=== PATIENT | female | born 1995 | race Caucasian/White ===

== ENCOUNTER 2016-05-13 15:28 | Emergency (ER) | payer OTHER ==
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
--- NOTE | 2016-05-13 18:09 | ED ORDER SUMMARY ---
..... Patient: TRACY COVINGTON OrderSheet [facility] VisitID: [id number] [address] [place] [address] 20y, F Registration Date/Time: 05/13/2016 ORDER SHEET Weight: 88.4 kg (stated) Allergies: No Known Drug Allergy GENERAL ORDERS: MEDICATION ORDERS: Motrin PO 800 mg (NOW) (17:12 05/13/2016 EKoroleva P.A.-C) (17:20 LSullivan R.N.) Tylenol PO 325 mg (NOW) (17:12 05/13/2016 EKoroleva P.A.-C) (17:20 LSullivan R.N.) IV FLUIDS: ORDER SHEET NOTES: [Electronically signed by Stephanie MontejoAZabrina-Celestine (18:32 05/13/2016)] [Electronically signed by Montse Zamudio R.N. (22:25 05/13/2016)] [Electronically locked/signed by Montse Zamudio R.N. (22:25 05/13/2016)]
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
--- NOTE | 2016-05-13 18:09 | ED ORDER SUMMARY ---
..... Patient: TRACY COVINGTON OrderSheet [facility] VisitID: [id number] [address] [place] [address] 20y, F Registration Date/Time: 05/13/2016 ORDER SHEET Weight: 88.4 kg (stated) Allergies: No Known Drug Allergy GENERAL ORDERS: MEDICATION ORDERS: Motrin PO 800 mg (NOW) (17:12 05/13/2016 EKoroleva P.A.-C) (17:20 LSullivan R.N.) Tylenol PO 325 mg (NOW) (17:12 05/13/2016 EKoroleva P.A.-C) (17:20 LSullivan R.N.) IV FLUIDS: ORDER SHEET NOTES: [Electronically signed by Stephanie MontejoAZabrina-Celestine (18:32 05/13/2016)] [Electronically signed by Montse Zamudio R.N. (22:25 05/13/2016)] [Electronically locked/signed by Montse Zamudio R.N. (22:25 05/13/2016)]
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
--- NOTE | 2016-05-13 22:25 | ED DISCHARGE INSTRUCTIONS ---
Patient: TRACY COVINGTON General Instructions [facility] VisitID: [id number] [place] [address] 20y, F Registration Date/Time: 05/13/2016 Febrile illness. Influenza type A. INSTRUCTIONS Drink plenty of fluids. Prescription Medications: Tamiflu 75 mg: take 1 capsule orally every 12 hours for 5 days. Dispense ten (10). No refills. Substitution is permissible. Ibuprofen 800 mg tablets: take 1 tablet orally every 8 hours for 5 days, as needed for pain or fever. Dispense fifteen (15). No refill. Follow-up: Follow up with your doctor Tuesday. ADDITIONAL INFORMATION Influenza (Adult) Influenza, also called the flu, is a viral illness that affects the air passages of the lungs. It differs from the common cold. It is highly contagious. It may be spread through the air by coughing and sneezing or by direct contact (touching the sick person and then touching your own eyes, nose or mouth). Illness starts 1-3 days after exposure and lasts for 1-2 weeks. Antibiotics are usually not needed unless a complication appears (ear or sinus infection or pneumonia). Symptoms may be mild or severe and can include extreme tiredness (wanting to stay in bed all day), chills, fevers, muscle aching, soreness with eye movement, headache, and a dry, hacking cough. Home Care: Avoid exposure to cigarette smoke (yours or others). Tylenol or ibuprofen (Advil) will help fever, muscle aching, and headache. To avoid risk of liver injury, aspirin should not be used in children and teenagers under 18 with this illness. Nausea and loss of appetite are common. A light diet is recommended. Avoid dehydration by drinking 6-8 glasses of fluids per day (water, sport drinks like Gatorade, soft drinks without caffeine, juices, tea, soup, etc.). Extra fluids will also help loosen secretions in the nose and lungs. [id number] cold medicines will not shorten the duration of the illness but may be helpful for the following symptoms: cough (Robitussin DM); sore throat (Chloraseptic lozenges or spray); nasal and sinus congestion (Actifed or Sudafed). [NOTE: Do not use decongestants if you have high blood pressure.] Stay home until your fever has been gone for at least 24 hours (without the use of fever-reducing medications such as ibuprofen). Follow Up with your doctor or as directed by our staff if you are not improving over the next week. Note: If you are age 65 or older, or if you have chronic asthma or COPD, we recommend a pneumococcal vaccinationevery five years. All adults shouldreceive a yearly influenza vaccination every . Ask your doctor about this. Get Prompt Medical Attention if any of the following occur: Cough with lots of colored sputum (mucus) or blood in your sputum Chest pain, shortness of breath, wheezing, or difficulty breathing Severe headache, face, neck or ear pain New rash Fever of 100.4F (38C) oral or higher, not better with fever medication Confusion, behavior change or seizure Severe weakness or dizziness You have been given the following additional information: Influenza (Adult) (Electronically signed by Stephanie Montejo P.A.-C 05/13/2016 18:32)
--- NOTE | 2016-05-13 22:25 | ED MAR SUMMARY ---
..... Medication Administration Record [facility] [address] [place] [address] Patient: TRACY COVINGTON Visit ID: [id number] 20y, F Weight: 88.4 kg Height/Length: 71 in BMI: 27.2 ALLERGIES: No Known Drug Allergy Given 17:05/13/2016 Vera Mann RZabrinaNZabrina Medication Administered: MOTRIN [PO], Dose: 800 mg PO. Medication Ordered: Motrin PO 800 mg (NOW). Given 17:05/13/2016 Vera Mann, R.N. Medication Administered: TYLENOL [PO] (ACETAMINOPHEN), Dose: 325 mg PO. Medication Ordered: Tylenol PO 325 mg (NOW).
--- NOTE | 2016-05-13 22:25 | ED MED RECONCILIATION SUMMARY ---
Patient: TRACY COVINGTON Medication Reconciliation Report [facility] VisitID: [id number] [address] [place] [address] 20y, F Registration Date/Time: 05/13/2016 Weight: 88.4 kg Height/Length: 71 in. BMI: 27.2 ALLERGIES: No Known Drug Allergy The patient's Home Medications are listed below: THE FOLLOWING MEDICATIONS NEED TO BE RECONCILED: [place] Oral (10-325 mg), daily, did not take today The source(s) of the original Home Medication information: patient The following Medications were given to the patient in the Emergency Department: Motrin [PO] PO 800 mg, administered: 05/13/2016 5:20:00 PM Tylenol [PO] PO 325 mg, administered: 05/13/2016 5:20:00 PM The following Medications were prescribed to the patient: Tamiflu 75 mg: take 1 capsule orally every 12 hours for 5 days. Dispense ten (10). No refills. Substitution is permissible. -- Stephanie Montejo, P.A.-Celestine Ibuprofen 800 mg tablets: take 1 tablet orally every 8 hours for 5 days, as needed for pain or fever. Dispense fifteen (15). No refill. -- Stephanie Montejo, P.A.-C
--- NOTE | 2016-05-13 22:25 | ED MAR SUMMARY ---
..... Medication Administration Record [facility] [address] [place] [address] Patient: TRACY COVINGTON Visit ID: [id number] 20y, F Weight: 88.4 kg Height/Length: 71 in BMI: 27.2 ALLERGIES: No Known Drug Allergy Given 17:05/13/2016 Vera Mann RZabrinaNZabrina Medication Administered: MOTRIN [PO], Dose: 800 mg PO. Medication Ordered: Motrin PO 800 mg (NOW). Given 17:05/13/2016 Vera Mann, R.N. Medication Administered: TYLENOL [PO] (ACETAMINOPHEN), Dose: 325 mg PO. Medication Ordered: Tylenol PO 325 mg (NOW).
--- NOTE | 2016-05-13 22:25 | ED MED RECONCILIATION SUMMARY ---
Patient: TRACY COVINGTON Medication Reconciliation Report [facility] VisitID: [id number] [address] [place] [address] 20y, F Registration Date/Time: 05/13/2016 Weight: 88.4 kg Height/Length: 71 in. BMI: 27.2 ALLERGIES: No Known Drug Allergy The patient's Home Medications are listed below: THE FOLLOWING MEDICATIONS NEED TO BE RECONCILED: [place] Oral (10-325 mg), daily, did not take today The source(s) of the original Home Medication information: patient The following Medications were given to the patient in the Emergency Department: Motrin [PO] PO 800 mg, administered: 05/13/2016 5:20:00 PM Tylenol [PO] PO 325 mg, administered: 05/13/2016 5:20:00 PM The following Medications were prescribed to the patient: Tamiflu 75 mg: take 1 capsule orally every 12 hours for 5 days. Dispense ten (10). No refills. Substitution is permissible. -- Stephanie Montejo, P.A.-Celestine Ibuprofen 800 mg tablets: take 1 tablet orally every 8 hours for 5 days, as needed for pain or fever. Dispense fifteen (15). No refill. -- Stephanie Montejo, P.A.-C
== END 2016-05-13 18:43 | disposition home or self-care (01) ==
LOC: ED SRH 15:28
DX: J11.1 Influenza due to unidentified influenza virus with other respiratory manifestations (principal); F17.200 Nicotine dependence, unspecified, uncomplicated

== ENCOUNTER 2016-07-20 16:54 | Emergency (ER) | payer OTHER ==
--- NOTE | 2016-07-20 17:37 | DIAGNOSTIC IMAGING REPORT ---
PROCEDURE: XR CHEST 2 VIEW INDICATION: CHEST PAIN TECHNIQUE: PA and lateral views. COMPARISON: Chest 07/19/2011 FINDINGS: Lungs are clear. Heart and mediastinum are normal. Thorax is normal. IMPRESSION: 1. Negative chest.
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
--- NOTE | 2016-07-20 18:27 | ED ORDER SUMMARY ---
..... Patient: TRACY COVINGTON OrderSheet [facility] VisitID: [id number] [place] [address] 20y, F Registration Date/Time: 07/20/2016 ORDER SHEET Weight: 85.2 kg (stated) Allergies: No Known Drug Allergy GENERAL ORDERS: Chest 2V Urgent (17:20 07/20/2016 EKoroleva P.A.-C) (Ack 17:23 LNations ER Tech1) (17:37 JBoardley R.N.) Supervisor Dyer (Continuous) (17:20 07/20/2016 EKoroleva P.A.-C) (Ack 17:23 LNations ER Tech1) (17:37 JBoardley R.N.) UA-Culture if indicated Urgent (17:21 07/20/2016 EKoroleva P.A.-C) (Ack 17:23 LNations ER Tech1) (17:37 JBoardley R.N.) Urine Urgent (17:21 07/20/2016 EKoroleva P.A.-C) (Ack 17:23 LNations ER Tech1) (17:37 JBoardley R.N.) EKG - ER Stat (17:21 07/20/2016 EKoroleva P.A.-C) (Ack 17:23 LNations ER Tech1) (17:50 JBoardley R.N.) MEDICATION ORDERS: Valium PO 5 mg (HIGH ALERT MEDICATION, NOW) (18:11 07/20/2016 EKoroleva P.A.-C) (Ack 18:11 JBoardley R.N.) (18:14 JBoardley R.N.) Percocet PO 5/325 mg (HIGH ALERT MEDICATION, NOW) (18:11 07/20/2016 EKoroleva P.A.-C) (Ack 18:12 JBoardley R.N.) (18:14 JBoardley R.N.) IV FLUIDS: ORDER SHEET NOTES: [Electronically signed by Dominic Castellon R.N. (18:39 07/20/2016)] [Electronically signed by Stephanie Montejo P.A.-C (19:08 07/20/2016)] [Electronically locked/signed by Dominic Castellon R.N. (18:39 07/20/2016)]
--- NOTE | 2016-07-20 18:27 | ED ORDER SUMMARY ---
..... Patient: TRACY COVINGTON OrderSheet [facility] VisitID: [id number] [place] [address] 20y, F Registration Date/Time: 07/20/2016 ORDER SHEET Weight: 85.2 kg (stated) Allergies: No Known Drug Allergy GENERAL ORDERS: Chest 2V Urgent (17:20 07/20/2016 EKoroleva P.A.-C) (Ack 17:23 LNations ER Tech1) (17:37 JBoardley R.N.) Analysis Analyst (Continuous) (17:20 07/20/2016 EKoroleva P.A.-C) (Ack 17:23 LNations ER Tech1) (17:37 JBoardley R.N.) UA-Culture if indicated Urgent (17:21 07/20/2016 EKoroleva P.A.-C) (Ack 17:23 LNations ER Tech1) (17:37 JBoardley R.N.) Urine Urgent (17:21 07/20/2016 EKoroleva P.A.-C) (Ack 17:23 LNations ER Tech1) (17:37 JBoardley R.N.) EKG - ER Stat (17:21 07/20/2016 EKoroleva P.A.-C) (Ack 17:23 LNations ER Tech1) (17:50 JBoardley R.N.) MEDICATION ORDERS: Valium PO 5 mg (HIGH ALERT MEDICATION, NOW) (18:11 07/20/2016 EKoroleva P.A.-C) (Ack 18:11 JBoardley R.N.) (18:14 JBoardley R.N.) Percocet PO 5/325 mg (HIGH ALERT MEDICATION, NOW) (18:11 07/20/2016 EKoroleva P.A.-C) (Ack 18:12 JBoardley R.N.) (18:14 JBoardley R.N.) IV FLUIDS: ORDER SHEET NOTES: [Electronically signed by Dominic Castellon R.N. (18:39 07/20/2016)] [Electronically signed by Stephanie Montejo P.A.-C (19:08 07/20/2016)] [Electronically locked/signed by Dominic Castellon R.N. (18:39 07/20/2016)]
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
--- NOTE | 2016-07-20 19:08 | ED MED RECONCILIATION SUMMARY ---
Patient: TRACY COVINGTON Medication Reconciliation Report [facility] VisitID: [id number] [address] [place] [address] 20y, F Registration Date/Time: 07/20/2016 Weight: 85.2 kg Height/Length: 71 in. BMI: 26.2 ALLERGIES: No Known Drug Allergy The patient's Home Medications are listed below: THE FOLLOWING MEDICATIONS NEED TO BE RECONCILED: Ibuprofen Oral Og[place]by Oral (10-325 mg), daily The source(s) of the original Home Medication information: Not obtained. The following Medications were given to the patient in the Emergency Department: Valium [PO] PO 5 mg, administered: 07/20/2016 6:14:00 PM Percocet [PO] PO 1 tab, administered: 07/20/2016 6:14:00 PM The following Medications were prescribed to the patient: Valium 5 mg: take 1 orally every 12 hours as needed for muscle spasm. No refill. Substitution is permissible.(#4) -- Stephanie Montejo P.A.-C
--- NOTE | 2016-07-20 19:08 | ED DISCHARGE INSTRUCTIONS ---
Patient: TRACY COVINGTON General Instructions [facility] VisitID: [id number] [place] [address] 20y, F Registration Date/Time: 07/20/2016 Acute thoracic back pain associated with muscle strain. INSTRUCTIONS Apply ice. (alternate ice/ heat). Prescription Medications: Valium 5 mg: take 1 orally every 12 hours as needed for muscle spasm. No refill. Substitution is permissible. (#4) Follow-up: Follow up with your doctor in two days. ADDITIONAL INFORMATION Back Pain [Acute Or Chronic] Back pain is usually caused by an injury to the muscles or ligaments of the spine. Sometimes the disks that separate each bone in the spine may bulge and cause pain by pressing on a nearby nerve. Back pain may also appear after a sudden twisting/bending force (such as in a car accident), after a simple awkward movement, or lifting something heavy with poor body positioning. In either case, muscle spasm is often present and adds to the pain. Acute back pain usually gets better in one to two weeks. Back pain related to disk disease, arthritis in the spinal joints or spinal stenosis (narrowing of the spinal canal) can become chronic and last for months or years. Unless you had a physical injury (for example, a car accident or fall) X-rays are usually not ordered for the initial evaluation of back pain. If pain continues and does not respond to medical treatment, x-rays and other tests may be performed at a later time. Home Care: You may need to stay in bed the first few days. But, as soon as possible, begin sitting or walking to avoid problems with prolonged bed rest (muscle weakness, worsening back stiffness and pain, blood clots in the legs). When in bed, try to find a position of comfort. A firm mattress is best. Try lying flat on your back with pillows under your knees. You can also try lying on your side with your knees bent up towards your chest and a pillow between your knees. Avoid prolonged sitting. This puts more stress on the lower back than standing or walking. During the first two days after injury, apply an ICE PACK to the painful area for 20 minutes every 2-4 hours. This will reduce swelling and pain. HEAT (hot shower, hot bath or heating pad) works well for muscle spasm. You can start with ice, then switch to heat after two days. Some patients feel best alternating ice and heat treatments. Use the one method that feels the best to you. You may use acetaminophen (Tylenol) or ibuprofen (Motrin, Advil) to control pain, unless another pain medicine was prescribed. [NOTE: If you have chronic liver or kidney disease or ever had a stomach ulcer or GI bleeding, talk with your doctor before using these medicines.] Be aware of safe lifting methods and do not lift anything over 15 pounds until all the pain is gone. Follow Up with your doctor or this facility if your symptoms do not start to improve after one week. Physical therapy may be needed. [NOTE: If X-rays were taken, they will be reviewed by a radiologist. You will be notified of any new findings that may affect your care.] Get Prompt Medical Attention if any of the following occur: Pain becomes worse or spreads to your legs Weakness or numbness in one or both legs Loss of bowel or bladder control Numbness in the groin or genital area Back Spasm [No Trauma] Spasm of the back muscles can occur after a sudden forceful twisting or bending force (such as in a car accident), after a simple awkward movement, or after lifting something heavy with poor body positioning. In either case, muscle spasm is often present and adds to the pain.Sleeping in an awkward position or on a poor quality mattress can also cause this. Some persons respond to emotional stress by tensing the muscles of their back. The treatment described below will usually help the pain to go away in 5-7 days. Pain that continues may require further evaluation or other types of treatment such as physical therapy. Unless you had a physical injury (for example, a car accident or fall), x-rays are usually not ordered for the initial evaluation of back pain. If pain continues and does not respond to medical treatment, x-rays and other tests may be performed at a later time. Home Care: You may need to stay in bed the first few days. But, as soon as possible, begin sitting or walking to avoid problems with prolonged bed rest (muscle weakness, worsening back stiffness and pain, blood clots in the legs). When in bed, try to find a position of comfort. A firm mattress is best. Try lying flat on your back with pillows under your knees. You can also try lying on your side with your knees bent up toward your chest and a pillow between your knees. Avoid prolonged sitting. This puts more stress on the lower back than standing or walking. Some persons find relief with heat (hot shower, hot bath, or heating pad) and massage, while others prefer cold packs (crushed or cubed ice in a plastic bag, wrapped in a towel). Try both and use the method that feels best for 20 minutes several times a day. You may use acetaminophen (Tylenol) or ibuprofen (Motrin, Advil) to control pain, unless another pain medicine was prescribed. [NOTE: If you have chronic liver or kidney disease or ever had a stomach ulcer or GI bleeding, talk with your doctor before using these medicines.] Gentle stretching will help your back heal faster. Perform this simple routine 2-3 times a day until your back is feeling better. LOW BACK STRETCH Lie on your back with your knees bent and both feet on the ground. Slowly raise your left knee to your chest as you flatten your lower back against the floor. Hold for 5 seconds. Relax and repeat the exercise with your right knee. Do 10 of these exercises for each leg. Repeat, hugging both knees to your chest at the same time. Be aware of safe lifting methods and do not lift anything over 15 pounds until all the pain is gone. Follow Up with your doctor or this facility if your symptoms do not start to improve after one week. Physical therapy or further tests may be needed. [NOTE: If x-rays were taken, they will be reviewed by a radiologist. You will be notified of any new findings that may affect your care.] Return Promptly or contact your doctor if any of the following occurs: Pain becomes worse or spreads to your legs Weakness or numbness in one or both legs Loss of bowel or bladder control Numbness in the groin or genital area Unexplained fever over 100.4F (38.0C) Burning or pain when passing urine You have been given the following additional information: Back Pain (Acute Or Chronic) Back Spasm, No Trauma (Electronically signed by Stephanie Montejo P.A.-C 07/20/2016 19:08)
--- NOTE | 2016-07-20 19:08 | ED MAR SUMMARY ---
..... Medication Administration Record [facility] [address] [place] [address] Patient: TRACY COVINGTON Visit ID: [id number] 20y, F Weight: 85.2 kg Height/Length: 71 in BMI: 26.2 ALLERGIES: No Known Drug Allergy Given 18:07/20/2016 Dominic Castellon RZabrinaNZabrina Medication Administered: VALIUM [PO] (DIAZEPAM), Dose: 5 mg PO. Medication Ordered: Valium PO 5 mg (HIGH ALERT MEDICATION, NOW). Given 18:07/20/2016 Dominic Castellon RZabrinaN. Medication Administered: PERCOCET [PO] (OXYCODONE-ACETAMINOPHEN), Dose: 1 tab 5/325 mg Tablets PO. Medication Ordered: Percocet PO 5/325 mg (HIGH ALERT MEDICATION, NOW).
--- NOTE | 2016-07-20 19:08 | ED MED RECONCILIATION SUMMARY ---
Patient: TRACY COVINGTON Medication Reconciliation Report [facility] VisitID: [id number] [address] [place] [address] 20y, F Registration Date/Time: 07/20/2016 Weight: 85.2 kg Height/Length: 71 in. BMI: 26.2 ALLERGIES: No Known Drug Allergy The patient's Home Medications are listed below: THE FOLLOWING MEDICATIONS NEED TO BE RECONCILED: Ibuprofen Oral Rochelle Oral (10-325 mg), daily The source(s) of the original Home Medication information: Not obtained. The following Medications were given to the patient in the Emergency Department: Valium [PO] PO 5 mg, administered: 07/20/2016 6:14:00 PM Percocet [PO] PO 1 tab, administered: 07/20/2016 6:14:00 PM The following Medications were prescribed to the patient: Valium 5 mg: take 1 orally every 12 hours as needed for muscle spasm. No refill. Substitution is permissible.(#4) -- Stephanie Montejo P.A.-C
--- NOTE | 2016-07-20 19:08 | ED MAR SUMMARY ---
..... Medication Administration Record [facility] [address] [place] [address] Patient: TRACY COVINGTON Visit ID: [id number] 20y, F Weight: 85.2 kg Height/Length: 71 in BMI: 26.2 ALLERGIES: No Known Drug Allergy Given 18:07/20/2016 Dominic Castellon RZabrinaNZabrina Medication Administered: VALIUM [PO] (DIAZEPAM), Dose: 5 mg PO. Medication Ordered: Valium PO 5 mg (HIGH ALERT MEDICATION, NOW). Given 18:07/20/2016 Dominic Castellon RZabrinaN. Medication Administered: PERCOCET [PO] (OXYCODONE-ACETAMINOPHEN), Dose: 1 tab 5/325 mg Tablets PO. Medication Ordered: Percocet PO 5/325 mg (HIGH ALERT MEDICATION, NOW).
== END 2016-07-20 18:38 | disposition home or self-care (01) ==
LOC: ED SRH 16:54
DX: S29.012A Strain of muscle and tendon of back wall of thorax, initial encounter (principal); X58.XXXA Exposure to other specified factors, initial encounter; Y93.89 Activity, other specified; Z79.1 Long term (current) use of non-steroidal anti-inflammatories (NSAID)
CPT/HCPCS: 90004; 93070

== ENCOUNTER 2016-11-15 13:24 | Emergency (ER) | payer OTHER ==
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
--- NOTE | 2016-11-15 14:57 | ED ORDER SUMMARY ---
..... Patient: TRACY COVINGTON OrderSheet [facility] VisitID: [id number] [place] [address] 21y, F Registration Date/Time: 11/15/2016 ORDER SHEET Weight: 84.8 kg Allergies: No Known Drug Allergy GENERAL ORDERS: UA-Culture if indicated Urgent (13:39 11/15/2016 JBoardley R.N. per protocol) (Ack 13:43 Glenn) (13:45 JBoardley R.N.) Urine Urgent (13:39 11/15/2016 JBoardley R.N. per protocol) (Ack 13:43 Glenn) (13:45 JBoardley R.N.) MEDICATION ORDERS: Valium IM 5 mg (HIGH ALERT MEDICATION, NOW) (13:51 11/15/2016 EKadalbertolemariluz P.A.-C) (Ack 13:56 JBoardley R.N.) (14:00 JBoardley R.N.) Percocet PO 5/325 mg (HIGH ALERT MEDICATION, NOW) (14:52 11/15/2016 EKoroleva P.A.-C) (Ack 14:53 JBoardley R.N.) (14:54 JBoardley R.N.) IV FLUIDS: ORDER SHEET NOTES: [Electronically signed by Dominic Castellon R.N. (15:15 11/15/2016)] [Electronically signed by Stephanie Montejo P.A.-C (15:19 11/15/2016)] [Electronically locked/signed by Dominic Castellon R.N. (15:15 11/15/2016)]
--- NOTE | 2016-11-15 14:57 | ED ORDER SUMMARY ---
..... Patient: TRACY COVINGTON OrderSheet [facility] VisitID: [id number] [place] [address] 21y, F Registration Date/Time: 11/15/2016 ORDER SHEET Weight: 84.8 kg Allergies: No Known Drug Allergy GENERAL ORDERS: UA-Culture if indicated Urgent (13:39 11/15/2016 JBoardley R.N. per protocol) (Ack 13:43 Glenn) (13:45 JBoardley R.N.) Urine Urgent (13:39 11/15/2016 JBoardley R.N. per protocol) (Ack 13:43 Glenn) (13:45 JBoardley R.N.) MEDICATION ORDERS: Valium IM 5 mg (HIGH ALERT MEDICATION, NOW) (13:51 11/15/2016 EKadalbertolemariluz P.A.-C) (Ack 13:56 JBoardley R.N.) (14:00 JBoardley R.N.) Percocet PO 5/325 mg (HIGH ALERT MEDICATION, NOW) (14:52 11/15/2016 EKoroleva P.A.-C) (Ack 14:53 JBoardley R.N.) (14:54 JBoardley R.N.) IV FLUIDS: ORDER SHEET NOTES: [Electronically signed by Dominic Castellon R.N. (15:15 11/15/2016)] [Electronically signed by Stephanie Montejo P.A.-C (15:19 11/15/2016)] [Electronically locked/signed by Dominic Castellon R.N. (15:15 11/15/2016)]
--- NOTE | 2016-11-15 15:20 | ED MED RECONCILIATION SUMMARY ---
Patient: TRACY COVINGTON Medication Reconciliation Report [facility] VisitID: [id number] [address] [place] [address] 21y, F Registration Date/Time: 11/15/2016 Weight: 84.8 kg Height/Length: 71 in. BMI: 26.1 ALLERGIES: No Known Drug Allergy The patient's Home Medications are listed below: THE FOLLOWING MEDICATIONS NEED TO BE RECONCILED: [place] Oral (10-325 mg), daily The source(s) of the original Home Medication information: patient The following Medications were given to the patient in the Emergency Department: Valium [IM] IM 5 mg, administered: 11/15/2016 2:00:00 PM Percocet [PO] PO 1 tab, administered: 11/15/2016 2:54:00 PM The following Medications were prescribed to the patient: Flexeril 10 mg: take 1 orally every 8 hours for 5 days as needed for muscle spasm. Dispense fifteen (15). No refills. Substitution is permissible. -- Stephanie Montejo, PZabrinaA.-C
--- NOTE | 2016-11-15 15:20 | ED DISCHARGE INSTRUCTIONS ---
Patient: TRACY COVINGTON General Instructions [facility] VisitID: [id number] [place] [address] 21y, F Registration Date/Time: 11/15/2016 Acute lumbar strain. Mid back spasm. INSTRUCTIONS Apply ice. (please follow-up with your doctor in regards her plan for when he have acute exacerbations or ear pain. warm packs). Prescription Medications: Flexeril 10 mg: take 1 orally every 8 hours for 5 days as needed for muscle spasm. Dispense fifteen (15). No refills. Substitution is permissible. ADDITIONAL INFORMATION Back Pain [Acute Or Chronic] Back pain is usually caused by an injury to the muscles or ligaments of the spine. Sometimes the disks that separate each bone in the spine may bulge and cause pain by pressing on a nearby nerve. Back pain may also appear after a sudden twisting/bending force (such as in a car accident), after a simple awkward movement, or lifting something heavy with poor body positioning. In either case, muscle spasm is often present and adds to the pain. Acute back pain usually gets better in one to two weeks. Back pain related to disk disease, arthritis in the spinal joints or spinal stenosis (narrowing of the spinal canal) can become chronic and last for months or years. Unless you had a physical injury (for example, a car accident or fall) X-rays are usually not ordered for the initial evaluation of back pain. If pain continues and does not respond to medical treatment, x-rays and other tests may be performed at a later time. Home Care: You may need to stay in bed the first few days. But, as soon as possible, begin sitting or walking to avoid problems with prolonged bed rest (muscle weakness, worsening back stiffness and pain, blood clots in the legs). When in bed, try to find a position of comfort. A firm mattress is best. Try lying flat on your back with pillows under your knees. You can also try lying on your side with your knees bent up towards your chest and a pillow between your knees. Avoid prolonged sitting. This puts more stress on the lower back than standing or walking. During the first two days after injury, apply an ICE PACK to the painful area for 20 minutes every 2-4 hours. This will reduce swelling and pain. HEAT (hot shower, hot bath or heating pad) works well for muscle spasm. You can start with ice, then switch to heat after two days. Some patients feel best alternating ice and heat treatments. Use the one method that feels the best to you. You may use acetaminophen (Tylenol) or ibuprofen (Motrin, Advil) to control pain, unless another pain medicine was prescribed. [NOTE: If you have chronic liver or kidney disease or ever had a stomach ulcer or GI bleeding, talk with your doctor before using these medicines.] Be aware of safe lifting methods and do not lift anything over 15 pounds until all the pain is gone. Follow Up with your doctor or this facility if your symptoms do not start to improve after one week. Physical therapy may be needed. [NOTE: If X-rays were taken, they will be reviewed by a radiologist. You will be notified of any new findings that may affect your care.] Get Prompt Medical Attention if any of the following occur: Pain becomes worse or spreads to your legs Weakness or numbness in one or both legs Loss of bowel or bladder control Numbness in the groin or genital area Muscle Spasm A MUSCLE SPASM is a prolonged contraction of the muscle fibers. This may be caused by strain or over exertion of the muscle, injury, or metabolic changes. If it goes on long enough the muscle spasm causes pain. Common locations for muscle spasm are the legs (especially at night in older persons), in the neck and back. Home Care: 1) Heat, massage and passive stretching will help relax muscle spasm. 2) When the spasm is in your arm or leg, you may stretch the muscle passively by having someone bend or straighten the joint above or below the muscle until you feel the stretch on the sore muscle. Hold this tension for 5-30 seconds, as tolerated. Release. Rest for one minute. Repeat until the spasm is relieved. 3) You may use acetaminophen (Tylenol) or ibuprofen (Motrin, Advil) to control pain, unless another medicine was prescribed. [ NOTE : If you have chronic liver or kidney disease or ever had a stomach ulcer or GI bleeding, talk with your doctor before using these medicines.] Follow Up with your doctor or this facility if you are not improving within the next 1-2 days. Get Prompt Medical Attention or contact your doctor if any of the following occur: -- Fingers or toes become swollen, cold, blue, numb or tingly -- You develop weakness in the affected arm or leg -- Pain increases and is not controlled by the above measures Cyclobenzaprine Hydrochloride Oral tablet What is this medicine? CYCLOBENZAPRINE (callum gleason) is a muscle relaxer. It is used to treat muscle pain, spasms, and stiffness. How should I use this medicine? Take this medicine by mouth with a glass of water. Follow the directions on the prescription label. If this medicine upsets your stomach, take it with food or milk. Take your medicine at regular intervals. Do not take it more often than directed. Talk to your medical technologist prn regarding the use of this medicine in children. Special care may be needed. What side effects may I notice from receiving this medicine? Side effects that you should report to your doctor or health long term care phlebotomist as soon as possible: allergic reactions like skin rash, itching or hives, swelling of the face, lips, or tongue chest pain fast heartbeat hallucinations seizures vomiting Side effects that usually do not require medical attention (report to your doctor or health long term care phlebotomist if they continue or are bothersome): headache What may interact with this medicine? Do not take this medicine with any of the following medications: cisapride droperidol flecainide grepafloxacin halofantrine levomethadyl MAOIs like Carbex, Eldepryl, Marplan, Nardil, and Parnate nilotinib pimozide probucol sertindole This medicine may also interact with the following medications: abarelix alcohol contrast dyes dolasetron guanethidine medicines for cancer medicines for depression, anxiety, or psychotic disturbances medicines to treat an irregular heartbeat medicines used for sleep or numbness during surgery or procedure methadone octreotide ondansetron palonosetron phenothiazines like chlorpromazine, mesoridazine, prochlorperazine, thioridazine some medicines for infection like alfuzosin, chloroquine, clarithromycin, levofloxacin, mefloquine, pentamidine, troleandomycin tramadol vardenafil What if I miss a dose? If you miss a dose, take it as soon as you can. If it is almost time for your next dose, take only that dose. Do not take double or extra doses. Where should I keep my medicine? Keep out of the reach of children. Store at room temperature between 15 and 30 degrees C (59 and 86 degrees F). Keep container tightly closed. Throw away any unused medicine after the expiration date. What should I tell my health care provider before I take this medicine? They need to know if you have any of these conditions: heart disease, irregular heartbeat, or previous heart attack liver disease thyroid problem an unusual or allergic reaction to cyclobenzaprine, tricyclic antidepressants, lactose, other medicines, foods, dyes, or preservatives or trying to get breast-feeding What should I watch for while using this medicine? Check with your doctor or health long term care phlebotomist if your condition does not improve within 1 to 3 weeks. You may get drowsy or dizzy when you first start taking the medicine or change doses. Do not drive, use machinery, or do anything that may be dangerous until you know how the medicine affects you. Stand or sit up slowly. Your mouth may get dry. Drinking water, chewing sugarless gum, or sucking on hard candy may help. You have been given the following additional information: Back Pain (Acute Or Chronic) Muscle Spasm Cyclobenzaprine Hydrochloride Oral tablet (Electronically signed by Stephanie Montejo P.A.-C 11/15/2016 15:19)
--- NOTE | 2016-11-15 15:20 | ED MAR SUMMARY ---
..... Medication Administration Record [facility] [address] [place] [address] Patient: TRACY COVINGTON Visit ID: [id number] 21y, F Weight: 84.8 kg Height/Length: 71 in BMI: 26.1 ALLERGIES: No Known Drug Allergy Given 14:00 11/15/2016 Dominic Castellon RZabrinaNZabrina Medication Administered: VALIUM [IM] (DIAZEPAM), Dose: 5 mg IM. Medication Ordered: Valium IM 5 mg (HIGH ALERT MEDICATION, NOW). Given 14:54 11/15/2016 Dominic Castellon RZabrinaN. Medication Administered: PERCOCET [PO] (OXYCODONE-ACETAMINOPHEN), Dose: 1 tab 5/325 mg Tablets PO. Medication Ordered: Percocet PO 5/325 mg (HIGH ALERT MEDICATION, NOW).
--- NOTE | 2016-11-15 15:20 | ED MAR SUMMARY ---
..... Medication Administration Record [facility] [address] [place] [address] Patient: TRACY COVINGTON Visit ID: [id number] 21y, F Weight: 84.8 kg Height/Length: 71 in BMI: 26.1 ALLERGIES: No Known Drug Allergy Given 14:00 11/15/2016 Dominic Castellon RZabrinaNZabrina Medication Administered: VALIUM [IM] (DIAZEPAM), Dose: 5 mg IM. Medication Ordered: Valium IM 5 mg (HIGH ALERT MEDICATION, NOW). Given 14:54 11/15/2016 Dominic Castellon RZabrinaN. Medication Administered: PERCOCET [PO] (OXYCODONE-ACETAMINOPHEN), Dose: 1 tab 5/325 mg Tablets PO. Medication Ordered: Percocet PO 5/325 mg (HIGH ALERT MEDICATION, NOW).
--- NOTE | 2016-11-15 15:20 | ED MED RECONCILIATION SUMMARY ---
Patient: TRACY COVINGTON Medication Reconciliation Report [facility] VisitID: [id number] [address] [place] [address] 21y, F Registration Date/Time: 11/15/2016 Weight: 84.8 kg Height/Length: 71 in. BMI: 26.1 ALLERGIES: No Known Drug Allergy The patient's Home Medications are listed below: THE FOLLOWING MEDICATIONS NEED TO BE RECONCILED: [place] Oral (10-325 mg), daily The source(s) of the original Home Medication information: patient The following Medications were given to the patient in the Emergency Department: Valium [IM] IM 5 mg, administered: 11/15/2016 2:00:00 PM Percocet [PO] PO 1 tab, administered: 11/15/2016 2:54:00 PM The following Medications were prescribed to the patient: Flexeril 10 mg: take 1 orally every 8 hours for 5 days as needed for muscle spasm. Dispense fifteen (15). No refills. Substitution is permissible. -- Stephanie Montejo, PZabrinaA.-C
== END 2016-11-15 15:01 | disposition home or self-care (01) ==
LOC: ED SRH 13:24
DX: S39.012A Strain of muscle, fascia and tendon of lower back, initial encounter (principal); M62.830 Muscle spasm of back; X58.XXXA Exposure to other specified factors, initial encounter; Y93.9 Activity, unspecified; Y92.9 Unspecified place or not applicable; Y99.9 Unspecified external cause status
CPT/HCPCS: 90004; 90469; 93070